=== PATIENT | female | born 1935 | race Caucasian/White ===

== ENCOUNTER 2016-06-16 15:44 | Outpatient (CLI) | payer MEDICARE, OTHER | END 2016-06-16 15:45 | disposition home or self-care (01) | LOC: HPCALD 15:44 | PROVIDERS: ATTEND Family Medicine | DX: N39.0 Urinary tract infection, site not specified (principal) | CPT/HCPCS: 87077; 87086; 87186 ==

== ENCOUNTER 2016-06-22 11:02 | Outpatient (CLI) | payer MEDICARE, OTHER ==
[2016-06-22 12:20] LABS: Hemoglobin 14.7 g/dL (12.0-16.0); Mean Corpuscular HGB CONC 33.3 g/dL (32.0-36.0); Mean Corpuscular Hemoglobin 29.3 pg (27.0-31.0); Mean Corpuscular Volume 88.2 fl (81.0-99.0); Mean Platelet Volume 7.4 fL (7.4-10.4); Platelet Count 206 thou/uL (130-400); RBC Distribution Width 12.4 % (11.5-14.5); White Blood Cell (WBC) Count 5.3 thou/uL (4.8-10.8)
[2016-06-22 12:23] LABS: ALT (SGPT) 26 U/L (0-55); AST (SGOT) 57 U/L (5-34); Albumin 4.4 g/dL (3.4-4.8); Alkaline Phosphatase 111 U/L (40-150); Anion Gap 13 mmol/L (10-20); BUN (Urea Nitrogen) 17 mg/dL (9.8-20.1); Bilirubin, Total 0.6 mg/dL (0.2-1.2); Calc. Creatinine Clearance 0 mL/min (70-130); Calcium 9.3 mg/dL (7.8-10.44); Carbon Dioxide 24 mmol/L (23-31); Cardiac Risk 2.7 (Less than 4.5); Chloride 109 mmol/L (98-107); Cholesterol 190 mg/dL (< 200 Desired); Estimated GFR-MDRD 66; Glucose 127 mg/dL (83-110); HDL Cholesterol 70 mg/dL (>60 Neg Risk); LDL Cholesterol, Calculated 100 mg/dL; Protein, Total 7.4 g/dL (5.8-8.1); Sodium 142 mmol/L (136-145); Triglycerides 101 mg/dL (Less than 150)
[2016-06-22 13:19] LABS: Eosinophils 1 % (0-10); Lymphocytes 53 % (21-51); MDiff Complete? YES; Monocytes 6 % (0-10); Neutrophil 40 % (42-75)
== END 2016-06-22 11:03 | disposition home or self-care (01) ==
LOC: HPCALD 11:02
PROVIDERS: ATTEND Family Medicine
DX: E11.9 Type 2 diabetes mellitus without complications (principal); I10 Essential (primary) hypertension; E78.5 Hyperlipidemia, unspecified
CPT/HCPCS: 36415; 80053; 80061; 83036; 84443; 85025

== ENCOUNTER 2016-11-03 16:25 | Outpatient (CLI) | payer MEDICARE, OTHER | END 2016-11-03 16:26 | disposition home or self-care (01) | LOC: HPCALD 16:25 | PROVIDERS: ATTEND Family Medicine | DX: N39.0 Urinary tract infection, site not specified (principal) | CPT/HCPCS: 87086 ==

== ENCOUNTER 2017-06-21 09:03 | Outpatient (CLI) | payer MEDICARE, OTHER ==
--- NOTE | 2017-06-21 19:47 | ULT ---
ABDOMINAL ULTRASOUND: 06/21/17 Ultrasonography of the abdomen was performed for evaluation of elevated liver function tests. Multipl e sonographic images were obtained. The liver was unremarkable in appearance. Its size is normal, measuring 13.7 cm in oblique sagittal l ength. No dilated ducts were seen within it. There is no disturbance of the parenchyma. The common bi le duct was a normal 1 cm in width, given that the patient has had a prior cholecystectomy. The pancr eas was unremarkable in appearance. The aorta was not shown, but the technologist did note that at re al time, no abnormalities of the aorta or inferior vena cava were appreciated. The right kidney is 11.1 cm in length and the left kidney is 10.0 cm. Both appear normal. The spleen was normal in size. IMPRESSION: Unremarkable abdominal ultrasound. POS: HOME
--- NOTE | 2017-06-21 19:54 | ULT ---
BILATERAL CAROTID ULTRASOUND 06/21/17 Color duplex doppler ultrasonography of the carotid and vertebral system was performed. No significan t plaque was seen on the 2D images. Some minimal intimal thickening is seen at the origin of the left ICA. Flows in the right carotid system were normal. Peak velocities in the right ICA were 82/17 with a nor mal 1.10 systolic velocity ratio. Flows in the left carotid system were normal as well with peak flow s in the left ICA of 59/15 with a normal 0.72 systolic velocity ratio. Blood flow was antegrade in ea ch of the vertebral arteries. IMPRESSION: Unremarkable carotid ultrasound showing no evidence of significant stenosis. POS: HOME
== END 2017-06-21 09:04 | disposition home or self-care (01) ==
LOC: BURULT 09:03
PROVIDERS: ATTEND Family Medicine
DX: I65.23 Occlusion and stenosis of bilateral carotid arteries (principal); R79.89 Other specified abnormal findings of blood chemistry; I10 Essential (primary) hypertension
CPT/HCPCS: 76700; 93880

== ENCOUNTER 2018-01-11 13:44 | Emergency (ER) | payer MEDICARE, OTHER ==
[2018-01-11 14:21] LABS: #Monocytes 0.3 thou/uL (0.11-0.59); #Neutrophils 2.6 thou/uL (1.40-6.50); %Basophils 0.7 % (0.0-1.0); %Lymphocytes 40.5 % (21.0-51.0); %Monocytes 6.6 % (0.0-10.0); %Neutrophils 51.3 % (42.0-75.0); Hemoglobin 15.7 g/dL (12.0-16.0); Mean Corpuscular Hemoglobin 27.1 pg (27.0-31.0); Mean Corpuscular Volume 84.5 fL (78.0-98.0); Platelet Count 224 thou/uL (130-400); RBC Distribution Width 13.5 % (11.5-14.5); Red Blood Cell (RBC) Count 5.79 mill/uL (4.20-5.40); White Blood Cell (WBC) Count 5.1 thou/uL (4.8-10.8)
[2018-01-11 14:38] LABS: Troponin I Less than 0.010 ng/mL (< 0.028)
[2018-01-11 14:42] LABS: ALT (SGPT) 33 U/L (8-55); AST (SGOT) 81 U/L (5-34); Albumin 4.9 g/dL (3.4-4.8); Alkaline Phosphatase 107 U/L (40-150); Anion Gap 16 mmol/L (10-20); BUN (Urea Nitrogen) 15 mg/dL (9.8-20.1); Bilirubin, Total 0.7 mg/dL (0.2-1.2); Calc. Creatinine Clearance 0 mL/min (70-130); Calcium 9.7 mg/dL (7.8-10.44); Carbon Dioxide 25 mmol/L (23-31); Chloride 105 mmol/L (98-107); Estimated GFR-MDRD 71; Globulin 3.5 g/dL (2.4-3.5); Glucose 143 mg/dL (83-110); Lipase 15 U/L (8-78); Potassium 3.7 mmol/L (3.5-5.1); Protein, Total 8.4 g/dL (6.0-8.3); Sodium 142 mmol/L (136-145)
[2018-01-11] MEDS ORDERED: Metoprolol Tartrate 5 MG/5 ML VIAL ONE (15:29)
[2018-01-11] MEDS ORDERED: ALPRAZolam 0.5 MG TAB ONE ×2 (15:30→16:27)
--- NOTE | 2018-01-11 19:10 | RAD ---
PORTABLE CHEST: 01/11/18 An AP portable film at 1405 is compared with an 11/03/11 study. The heart remains normal in size and the lungs are clear. No infiltrate, effusion, or vascular conges tion was seen. The bony thorax was unremarkable. IMPRESSION: No acute thoracic findings. POS: HOME
== END 2018-01-11 16:35 | disposition short-term general hospital (02) ==
LOC: BURERS 13:44
DX: I24.9 Acute ischemic heart disease, unspecified (principal); I10 Essential (primary) hypertension; E11.9 Type 2 diabetes mellitus without complications; K21.9 Gastro-esophageal reflux disease without esophagitis; E78.5 Hyperlipidemia, unspecified; Z86.73 Personal history of transient ischemic attack (TIA), and cerebral infarction without residual deficits; Z79.899 Other long term (current) drug therapy; Z79.82 Long term (current) use of aspirin
CPT/HCPCS: 71045; 80053; 82553; 83690; 83880; 84484; 85025; 93005; 94760; 96374

== ENCOUNTER 2018-01-30 08:57 | Outpatient (CLI) | payer MEDICARE ==
[2018-01-30] MEDS ORDERED: Iopamidol 370 76% 100 ML VIAL ONE (09:00)
--- NOTE | 2018-01-30 21:45 | CT ---
CT OF THE BRAIN AND ORBITS WITH AND WITHOUT CONTRAST 01/30/[address] was done through the brain and the orbits. Following this, IV contra st was injected and axial slices were acquired plus coronal and sagittal reconstructions were done. The ventricles are normal in size for age and atrophy. There is some mild generalized atrophy. There were no findings suggestive of acute stroke, mass, or edema. There is a tiny subcentimeter low densit y area in the left putamen that could be either a tiny old lacunar infarct or merely a Virchow-Santi space. Its significance in either case is doubtful. The coarse of the visual pathways was unremarkabl e. There is excellent opacification of vasculature. Both vertebral arteries fill and into the basilar artery. Both posterior cerebral arteries fill. The middle and anterior cerebral arteries fill well. Regarding the orbits themselves, no orbital masses were appreciated. Each optic nerve was normal in s ize and symmetrical with respect to the other. The rectus muscles were unremarkable in appearance. Th e retroorbital areas appear normal. I did not appreciate any mass around the pituitary gland or optic chiasm to cause visual defects. I was not told the exact visual defect of concern. The posterior fos sa was unremarkable. IMPRESSION: No significant findings to explain the patient's visual defects in the brain or the orbits. POS: HOME
== END 2018-01-30 08:58 | disposition home or self-care (01) ==
LOC: BURCT 08:57
PROVIDERS: ATTEND Ophthalmology
DX: H53.40 Unspecified visual field defects (principal); Z01.812 Encounter for preprocedural laboratory examination
CPT/HCPCS: 36415; 70470; 70482; 82565

== ENCOUNTER → 2018-07-18 | Emergency (ER) | payer MEDICARE, OTHER ==
[~2018-07-18] MED LIST: Lidocaine Viscous Sol 2% 15 ml UD Cup ONE; Lorazepam 2 MG/ML VIAL ONE; Mag-Al 1200 mg/1200 mg/30 ML UDCUP ONE; Morphine 4 MG/ML VIAL ONE; Ondansetron ODT 4 MG TAB ONE; Potassium Chloride 20 MEQ TAB ONE; Sodium Chloride 0.9% 1,000 ML BAG ONE
[2018-07-20 11:36] LABS: #Lymphocytes 1.2 thou/uL (1.20-3.40); #Monocytes 0.4 thou/uL (0.11-0.59); %Basophils 0.4 % (0.0-1.0); %Eosinophils 0.2 % (0.0-10.0); %Lymphocytes 14.1 % (21.0-51.0); %Neutrophils 80.4 % (42.0-75.0); ALT (SGPT) 214 U/L (8-55); AST (SGOT) 660 U/L (5-34); Albumin 4.7 g/dL (3.4-4.8); Alkaline Phosphatase 250 U/L (40-150); Anion Gap 16 mmol/L (10-20); BUN (Urea Nitrogen) 11 mg/dL (9.8-20.1); Bilirubin, Total 1.6 mg/dL (0.2-1.2); Calc. Creatinine Clearance 0 mL/min (70-130); Calcium 9.8 mg/dL (7.8-10.44); Carbon Dioxide 26 mmol/L (23-31); Chloride 102 mmol/L (98-107); Estimated GFR-MDRD 62; Globulin 3.8 g/dL (2.4-3.5); Lipase 7083 U/L (8-78); Mean Corpuscular Hemoglobin 28.3 pg (27.0-31.0); Mean Corpuscular Volume 88.3 fL (78.0-98.0); Mean Platelet Volume 7.6 fL (7.4-10.4); Platelet Count 229 thou/uL (130-400); Protein, Total 8.5 g/dL (6.0-8.3); RBC Distribution Width 13.5 % (11.5-14.5); Red Blood Cell (RBC) Count 5.67 mill/uL (4.20-5.40); Sodium 141 mmol/L (136-145); White Blood Cell (WBC) Count 8.8 thou/uL (4.8-10.8)
[2018-07-20 11:41] LABS: Glucose 160 mg/dL (83-110)
[2018-07-20 11:42] LABS: Potassium 2.9 mmol/L (3.5-5.1)
[2018-07-20 11:46] LABS: Base Excess-Venous 0.9 mmol/L (-2.0 to 3.0); CKMB 1.3 ng/mL (0-6.6); O2 Tension (PvO2) 56.8 mmHg (35.0-45.0); Troponin I Less than 0.010 ng/mL (< 0.028)
[2018-07-20 11:47] LABS: Hemoglobin - Calc 18.2 g/dL (12.0-16.0); Potassium 2.8 mmol/L (3.5-5.1); Sodium 137 mmol/L (138-145)
[2018-07-20 11:48] LABS: Calcium, Ionized 1.05 mmol/L (See Comments:); Chloride 107 mmol/L (98-107); T. Carbon Dioxide 27.3 mmol/L (22.0-28.0)
[2018-07-20 11:49] LABS: Bilirubin Negative (Negative); Blood, Urine Trace (Negative); Clarity Cloudy (Clear); Glucose, Urine (Dipstick) 500 mg/dL (Negative); Leukocyte Small (Negative); Nitrite Positive (Negative); Protein, Urine (Dipstick) 30 mg/dL (Neg-Trace); Specific Gravity, Urine 1.015 (1.005-1.030)
[2018-07-20 11:50] LABS: Bacteria/HPF 4+ HPF (None Seen); RBC/HPF 0-3 HPF (0-3); Renal Epithelial None Seen HPF (0-3); Squamous Epithelial None Seen HPF (0-3); Transitional Epithelial NONE SEEN HPF (0-3); WBC/HPF 0-3 HPF (0-3)
== END ==
LOC: BURERS 19:25
DX: K85.90 Acute pancreatitis without necrosis or infection, unspecified (principal); E87.6 Hypokalemia; I10 Essential (primary) hypertension; E78.5 Hyperlipidemia, unspecified; Z86.73 Personal history of transient ischemic attack (TIA), and cerebral infarction without residual deficits
CPT/HCPCS: 80053; 81003; 81015; 82330; 82435; 82553; 82803; 83690; 84132; 84295; 84484; 85014; 85025; 96374; 96375; 96376; 36415-59; J2060; J2270; J7050; Q0162

== ENCOUNTER 2018-12-25 13:21 | Outpatient (CLI) | payer MEDICARE, OTHER ==
--- NOTE | 2018-12-25 18:19 | ULT ---
CAROTID DOPPLER ULTRASOUND: 12/25/18 Color duplex Doppler ultrasonography of the carotid and vertebral system was performed. Documentary i mages and worksheets were provided and reviewed. The 2D images show relatively little to no plaque in the right carotid system. There is a mild amount in the left carotid system in the distal common carotid artery through the bulb and partially into t he left ECA. Analysis of the right carotid system showed peak velocities of 67/13 cm/s in the right ICA. The systo lic velocity ratio was 0.82 which is normal. Flows in the common carotid and external carotid arterie s were normal. Analysis of the left carotid system showed peak flows of 104/24 in the left ICA with a systolic veloc ity ratio of 1.27. This is normal. Flows were somewhat increased in the left ECA at 177/28 which woul d suggest approximately a 50% stenosis. Flows in the common carotid artery were normal. Vertebral flow is antegrade bilaterally. IMPRESSION: Mild amounts of plaque in the left carotid system. 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 No significant steno sis is seen in either ICA. POS: HOME
== END 2018-12-25 13:22 | disposition home or self-care (01) ==
LOC: BURULT 13:21
PROVIDERS: ATTEND Family Medicine
DX: I77.9 Disorder of arteries and arterioles, unspecified (principal); I10 Essential (primary) hypertension; I65.22 Occlusion and stenosis of left carotid artery; Z86.73 Personal history of transient ischemic attack (TIA), and cerebral infarction without residual deficits
CPT/HCPCS: 93880

== ENCOUNTER 2020-07-09 15:12 | Outpatient (CLI) | payer MEDICARE, OTHER | END 2020-07-09 15:13 | disposition home or self-care (01) | LOC: BURRAD 15:12 | PROVIDERS: ATTEND Family Medicine | DX: S50.12XA Contusion of left forearm, initial encounter (principal); S69.91XA Unspecified injury of right wrist, hand and finger(s), initial encounter ==

== ENCOUNTER 2020-07-21 13:28 | Outpatient (CLI) | payer MEDICARE, OTHER | END 2020-07-21 13:29 | disposition home or self-care (01) | LOC: BURRAD 13:28 | PROVIDERS: ATTEND Family Medicine | DX: M79.602 Pain in left arm (principal); S59.202D Unspecified physeal fracture of lower end of radius, left arm, subsequent encounter for fracture with routine healing ==

== ENCOUNTER 2021-01-10 06:02 | Emergency (ER) | payer MEDICARE, OTHER ==
[2021-01-10] MEDS ORDERED: Fentanyl 100 MCG/2 ML VIAL ONE ×2 (06:37→07:15)
[2021-01-10 06:38] LABS: #Lymphocytes 0.8 thou/uL (1.20-3.40); #Monocytes 0.3 thou/uL (0.11-0.59); #Neutrophils 8.3 thou/uL (1.40-6.50); %Basophils 0.1 % (0.0-1.0); %Eosinophils 0.1 % (0.0-10.0); %Monocytes 2.9 % (0.0-10.0); %Neutrophils 88.9 % (42.0-75.0); Hemoglobin 16.2 g/dL (12.0-16.0); Mean Corpuscular HGB CONC 32.4 g/dL (32.0-36.0); Mean Corpuscular Hemoglobin 28.5 pg (27.0-31.0); Mean Corpuscular Volume 88.1 fL (78.0-98.0); Mean Platelet Volume 7.6 fL (7.4-10.4); Platelet Count 274 thou/uL (130-400); RBC Distribution Width 13.2 % (11.5-14.5); Red Blood Cell (RBC) Count 5.67 mill/uL (4.20-5.40); White Blood Cell (WBC) Count 9.3 thou/uL (4.8-10.8)
[2021-01-10] MEDS ORDERED: Ondansetron PF 4 MG/2 ML Vial ONE (06:51)
[2021-01-10 06:59] LABS: ALT (SGPT) 348 U/L (8-55); AST (SGOT) 493 U/L (5-34); Albumin 4.6 g/dL (3.4-4.8); Alkaline Phosphatase 339 U/L (40-110); Anion Gap 21 mmol/L (10-20); BUN (Urea Nitrogen) 12 mg/dL (9.8-20.1); Bilirubin, Total 5.9 mg/dL (0.2-1.2); Calc. Creatinine Clearance 0 mL/min (70-130); Calcium 9.9 mg/dL (7.8-10.44); Carbon Dioxide 23 mmol/L (23-31); Chloride 98 mmol/L (98-107); Globulin 3.4 g/dL (2.4-3.5); Glucose 239 mg/dL (83-110); Sodium 139 mmol/L (136-145)
[2021-01-10 07:40] LABS: Lipase 3313 U/L (8-78)
[2021-01-10 07:44] LABS: Potassium 2.8 mmol/L (3.5-5.1)
[2021-01-10 08:18] LABS: Bilirubin Large (Negative); Blood, Urine Small (Negative); Clarity Clear (Clear); Glucose, Urine (Dipstick) 250 mg/dL (Negative); Ketone, Urine > or equal to 80 mg/dL (Negative); Leukocyte Negative (Negative); Nitrite Positive (Negative); Protein, Urine (Dipstick) > or equal to 300 mg/dL (Neg-Trace); Specific Gravity, Urine Greater/Equal 1.030 (1.005-1.030); pH, Urine 5.5 (5.0-9.0)
[2021-01-10 08:19] LABS: Bacteria/HPF 4+ HPF (None Seen); RBC/HPF 0-3 HPF (0-3); Squamous Epithelial 0-3 HPF (0-3)
[2021-01-10] MEDS ORDERED: Promethazine HCl 25 MG/ML VIAL ONE (08:20)
[2021-01-10] MEDS ORDERED: cefTRIAXone\\ROCEPHIN 1 GM VIAL ONE (08:20)
[2021-01-10] MEDS ORDERED: Sodium Chloride 0.9% 100 ML ONE (08:20)
[2021-01-10] MEDS ORDERED: Iopamidol 370 76% 100 ML VIAL ONE (13:56)
== END 2021-01-10 09:55 | disposition short-term general hospital (02) ==
LOC: BURERS 06:02
DX: K85.90 Acute pancreatitis without necrosis or infection, unspecified (principal); N39.0 Urinary tract infection, site not specified; E87.6 Hypokalemia; E11.9 Type 2 diabetes mellitus without complications; K21.9 Gastro-esophageal reflux disease without esophagitis; E78.5 Hyperlipidemia, unspecified; I10 Essential (primary) hypertension; Z86.73 Personal history of transient ischemic attack (TIA), and cerebral infarction without residual deficits; Z79.82 Long term (current) use of aspirin; Z79.899 Other long term (current) drug therapy
CPT/HCPCS: 51701; 71045; 74177; 80053; 81003; 81015; 83615; 83690; 84484; 85025; 87077; 87086; 87186; 93005; 94760; 96365; 96366; 96372; 96375; 96376; J0500; J0696; J2405; J2550; J3010; J3490; Q9967

== ENCOUNTER 2021-01-16 16:30 | Inpatient (IN) | payer MEDICARE, OTHER ==
[2021-01-16 18:23] VITALS: BMI 30.2
[2021-01-16] MEDS ORDERED: traMADol HCl 50 MG TAB PO PRN (19:46)
[2021-01-16] MEDS ORDERED: Senokot S 8.6-50 MG TAB PO PRN (19:49)
[2021-01-16] MEDS ORDERED: Acetaminophen 325 MG TAB PO PRN (19:49)
[2021-01-16] MEDS ORDERED: ALPRAZolam 0.5 MG TAB PO PRN (20:00)
[2021-01-16] MEDS ORDERED: Atorvastatin Calcium 40 MG TAB PO SCH (21:00)
[2021-01-16] MEDS: Timolol 0.5% Ophth Soln 5 ml Bottle L EYE SCH (21:23)
[2021-01-16] MEDS: Latanoprost 0.005% Ophth Soln 2.5 ml Bottle EA EYE SCH (21:24)
[2021-01-16] MEDS ORDERED: ALPRAZolam 0.5 MG TAB ONE (22:48)
[2021-01-16] MEDS: ALPRAZolam 0.25 MG TAB PO PRN (22:56)
[2021-01-17] MEDS: Aspirin 325 MG TAB PO SCH (09:51)
[2021-01-17] MEDS: Amlodipine 10 MG TAB PO SCH (09:51)
[2021-01-17] MEDS: Empagliflozin 10 MG TAB PO SCH (09:52)
[2021-01-17] MEDS: Timolol 0.5% Ophth Soln 5 ml Bottle L EYE SCH ×2 (09:52→20:16)
[2021-01-17] MEDS ORDERED: ALPRAZolam 0.5 MG TAB ONE (20:08)
[2021-01-17] MEDS: ALPRAZolam 0.25 MG TAB PO PRN (20:14)
[2021-01-17] MEDS: Latanoprost 0.005% Ophth Soln 2.5 ml Bottle EA EYE SCH (20:15)
[2021-01-18 04:42] VITALS: BP 149/75; TEMP 98.8
[2021-01-18] MEDS: Amlodipine 10 MG TAB PO SCH (08:17)
[2021-01-18] MEDS: Aspirin 325 MG TAB PO SCH (08:17)
[2021-01-18] MEDS: Timolol 0.5% Ophth Soln 5 ml Bottle L EYE SCH (08:18)
[2021-01-18] MEDS ORDERED: ALPRAZolam 0.5 MG TAB PO PRN (11:07)
[2021-01-18] MEDS: Empagliflozin 10 MG TAB PO SCH (12:34)
== END 2021-01-18 12:25 | disposition home or self-care (01) | DRG 440 ==
LOC: BURMED 17:25
PROVIDERS: ADMIT Family Medicine; ATTEND Family Medicine
DX: K85.10 Biliary acute pancreatitis without necrosis or infection (principal); I10 Essential (primary) hypertension; E11.9 Type 2 diabetes mellitus without complications; E78.5 Hyperlipidemia, unspecified; K21.9 Gastro-esophageal reflux disease without esophagitis; Z88.8 Allergy status to other drugs, medicaments and biological substances; Z88.1 Allergy status to other antibiotic agents; Z88.0 Allergy status to penicillin; Z88.2 Allergy status to sulfonamides; Z79.82 Long term (current) use of aspirin; Z79.899 Other long term (current) drug therapy; Z90.49 Acquired absence of other specified parts of digestive tract; Z90.710 Acquired absence of both cervix and uterus; Z91.018 Allergy to other foods
CPT/HCPCS: 36416